=== PATIENT | female | born 1985 | race Caucasian/White ===

== ENCOUNTER 2016-06-06 07:12 | Day surgery (SDC) | payer OTHER ==
--- NOTE | 2016-06-05 16:51 | HP ---
SAMUEL WEEMS DATE OF SCHEDULED SURGERY: June 06, 2016 PREOPERATIVE DIAGNOSIS: Pelvic pain. PROCEDURE PLANNED: Laparoscopy. HISTORY: The patient is a 30-year-old 1, para 1, woman with a last menstrual period of three weeks ago. She has been having a several year history of pelvic pain. She has had different ovarian cysts and actually in 2014 had a laparoscopy to drain an ovarian cyst. She also had a history of endometriosis documented in 2009. The pain has come and gone but recently has been getting worse. She had a fairly large ovarian cyst earlier this year which spontaneously resolved. However, she has continued to have pain. She has been in the emergency room at [facility]. There a CT scan was done which showed pelvic congestion, and she continues to have constant right lower quadrant pain which is interfering with her life. Because of the question of pelvic congestion and persistent pain, I have recommended a laparoscopy to try to further document and diagnosis this. PAST MEDICAL HISTORY: She denies major medical problems. PAST SURGICAL HISTORY: She has had two laparoscopies, one for endometriosis and one for an ovarian cyst. ALLERGIES: NONE. MEDICATIONS: Lutera control pill. SOCIAL HISTORY: Patient is [place] speaking. She does not smoke or use alcohol. FAMILY HISTORY: Noncontributory. REVIEW OF SYSTEMS: Patient denies any fever, chills, nausea, vomiting, change in bowel movements. PHYSICAL EXAMINATION: GENERAL: She is a healthy-appearing woman. VITAL SIGNS: Stable, afebrile. HEENT: Normal. LUNGS: Clear. HEART: Normal S1 and S2. ABDOMEN: Soft, nontender, with no guarding or rebound. PELVIC: External genitalia and vagina are normal. The cervix reveals no motion tenderness. The uterus is normal size. Adnexa are nontender with no masses. She is slightly tender in the cul-de-sac. LABS: test in the office today is negative. IMPRESSION: The impression is a patient with persistent pelvic pain, a history of endometriosis and now a suggestion of pelvic congestion on CT scan. PLAN: Plan is to do a laparoscopy.
[2016-06-06] MEDS ORDERED: LACTATED RINGERS 1,000 ML ONE (07:50)
[2016-06-06] MEDS ORDERED: ONDANSETRON 4 MG/2ML 2 ML VIAL ONE (08:19)
[2016-06-06] MEDS ORDERED: DEXAMETHASONE SOD PHOS 4 MG/1 ML VIAL ONE (08:19)
[2016-06-06] MEDS ORDERED: FENTANYL 100 MCG/2 ML VIAL ONE (08:19)
[2016-06-06] MEDS ORDERED: KETOROLAC TROMETHAMINE 30 MG/ML 1 ML VIAL ONE (08:19)
[2016-06-06] MEDS ORDERED: ROCURONIUM BROMIDE 10 MG/ML DOSE IV ONE (08:19)
[2016-06-06] MEDS ORDERED: FAMOTIDINE 10 MG/ML 2ML VIAL ONE (08:19)
[2016-06-06] MEDS ORDERED: PROPOFOL 20 ML IV ONE (08:19)
[2016-06-06] MEDS ORDERED: METOCLOPRAMIDE HCL 5 MG/ML 2ML VIAL ONE (08:19)
[2016-06-06] MEDS ORDERED: ATROPINE SULFATE 0.4 MG/1 ML VIAL IV PRN (08:43)
[2016-06-06] MEDS ORDERED: MEPERIDINE 25 MG/ML SYRINGE IV PRN (08:43)
[2016-06-06] MEDS ORDERED: LABETALOL HCL 5 MG/ML 20ML VIAL IV PRN (08:43)
[2016-06-06] MEDS ORDERED: ONDANSETRON 4 MG/2ML 2 ML VIAL IV PRN ×2 (08:43→09:40)
[2016-06-06] MEDS ORDERED: NALOXONE HCL 0.4 MG/ML VIAL IV PRN (08:43)
[2016-06-06] MEDS ORDERED: PROMETHAZINE HCL 25 MG/ML VIAL IM PRN (08:43)
[2016-06-06] MEDS ORDERED: LACTATED RINGERS 1,000 ML IV SCH (08:45)
[2016-06-06] MEDS ORDERED: NEOSTIGMINE METHYLSULFATE 1 MG/ML DOSE ONE (09:06)
[2016-06-06] MEDS ORDERED: GLYCOPYRROLATE 0.2 MG/ML 1ML VIAL ONE (09:06)
[2016-06-06] MEDS: MORPHINE SULFATE 4 MG/ML SYRINGE IV PRN ×2 (09:27→09:39)
[2016-06-06] MEDS ORDERED: OXYCODONE/ACETAMINOPHEN 5/325 MG TABLET PO PRN (09:40)
[2016-06-06] MEDS ORDERED: MORPHINE SULFATE 2 MG/ML SYRINGE IV PRN (09:40)
--- NOTE | 2016-06-06 10:22 | OP ---
Karine Estrada DATE: 06/06/2016 PREOPERATIVE DIAGNOSIS: Pelvic pain. POSTOPERATIVE DIAGNOSIS: Pelvic pain with a left ovarian cyst and pelvic congestion. PROCEDURE PERFORMED: Laparoscopy and aspiration of cyst. SURGEON: Abhishek Mirza MD. FINDINGS: The patient had a 2 cm left ovarian cyst and she had a uterus which was mottled in appearance and a definite increase in vasculature in the entire pelvis. OPERATIVE PROCEDURE: The patient was taken to the operating room and general anesthesia was administered. She was placed in a dorsolithotomy position and prepped and draped in the usual sterile fashion. Urinary bladder was drained. Bimanual exam showed a normal uterus and normal adnexa. A [employer] uterine manipulator inserted into the uterus and surgeon changed gloves. A subumbilical skin incision was made with a scalpel through which a 5 mm Visiport was inserted and laparoscope was inserted. A second incision was made suprapubically through which a 5 mm port was placed. Perioperative findings show that the uterus is normal size, but very mottled in appearance. The right ovary and tube were normal. The left tube was normal. The left ovary had a 2 cm cyst. There were some mild adhesions in the cul-de-sac which were broken. There was no active endometriosis seen, but throughout the entire pelvis were increased size of vessels and a number of vessels. The needle aspirator was used to aspirate clear fluid on the 2 cm cyst and this collapsed the cyst. The top of it was bleeding slightly and this was cauterized and hemostasis was good. At that point, all instruments and carbon dioxide were removed. The incision was closed with interrupted sutures of 3-0 plain suture material. The patient tolerated the procedure well and was taken to the recovery room in stable condition. All sponge, instrument, and needle counts were correct. Estimated blood loss minimal. JOB: [id number]
[2016-06-06] MEDS ORDERED: OXYCODONE/ACETAMINOPHEN 5/325 MG TABLET ONE (10:42)
== END 2016-06-06 11:23 | disposition home or self-care (01) ==
LOC: SDC 07:12
PROVIDERS: ATTEND Obstetrics & Gynecology
PROC: 0U914ZX Drainage of Left Ovary, Percutaneous Endoscopic Approach, Diagnostic (ICD-10-PCS; principal; 2016-06-06)
DX: N83.202 Unspecified ovarian cyst, left side (principal); N94.89 Other specified conditions associated with female genital organs and menstrual cycle
CPT/HCPCS: 49322; J3010; J1100; A9270; J2765; J1885; J2405; J7120